=== PATIENT | male | born 1945 | race Two or more races ===

== ENCOUNTER 2018-01-18 11:04 | Outpatient (CLI) | payer OTHER | END 2018-01-18 11:13 | disposition home or self-care (01) | LOC: SONOGRAMA 11:04 | DX: M75.51 Bursitis of right shoulder (principal) ==

== ENCOUNTER 2018-03-07 10:08 | Outpatient (CLI) | payer OTHER | END 2018-03-07 10:15 | disposition home or self-care (01) | LOC: LAB 10:08 | DX: C61 Malignant neoplasm of prostate (principal); R31.29 Other microscopic hematuria ==

== ENCOUNTER 2018-05-23 06:55 | Outpatient (CLI) | payer OTHER | END 2018-05-23 07:28 | disposition home or self-care (01) | LOC: LAB 06:55 | DX: Z85.46 Personal history of malignant neoplasm of prostate (principal); Z13.220 Encounter for screening for lipoid disorders; Z13.29 Encounter for screening for other suspected endocrine disorder; Z13.1 Encounter for screening for diabetes mellitus ==

== ENCOUNTER → 2018-09-18 07:04 | Outpatient (CLI) | payer OTHER | END | disposition home or self-care (01) | LOC: LAB 07:04 | DX: N30.00 Acute cystitis without hematuria (principal); C61 Malignant neoplasm of prostate ==

== ENCOUNTER 2019-02-20 07:47 | Outpatient (CLI) | payer OTHER | END 2019-02-20 12:04 | disposition home or self-care (01) | LOC: LAB 07:47 | DX: I10 Essential (primary) hypertension (principal); Z90.49 Acquired absence of other specified parts of digestive tract ==

== ENCOUNTER 2019-05-20 06:48 | Outpatient (CLI) | payer OTHER | END 2019-05-20 06:59 | disposition home or self-care (01) | LOC: LAB 06:48 | DX: R97.20 Elevated prostate specific antigen [PSA] (principal); C61 Malignant neoplasm of prostate ==

== ENCOUNTER 2019-08-15 06:56 | Outpatient (CLI) | payer OTHER | END 2019-08-15 07:06 | disposition home or self-care (01) | LOC: LAB 06:56 | DX: E55.9 Vitamin D deficiency, unspecified (principal); E78.00 Pure hypercholesterolemia, unspecified; I10 Essential (primary) hypertension; Z12.5 Encounter for screening for malignant neoplasm of prostate; E11.9 Type 2 diabetes mellitus without complications ==

== ENCOUNTER 2019-09-29 06:52 | Outpatient (CLI) | payer OTHER | END 2019-09-29 06:57 | disposition home or self-care (01) | LOC: LAB 06:52 | DX: R97.20 Elevated prostate specific antigen [PSA] (principal); C61 Malignant neoplasm of prostate ==

== ENCOUNTER 2019-10-01 11:39 | Outpatient (CLI) | payer OTHER | END 2019-10-01 12:48 | disposition home or self-care (01) | LOC: LAB 11:39 | DX: R97.20 Elevated prostate specific antigen [PSA] (principal); C61 Malignant neoplasm of prostate ==

== ENCOUNTER → 2019-10-13 | Outpatient (CLI) | payer OTHER | END | disposition home or self-care (01) | LOC: TOM 08:15 | DX: R97.20 Elevated prostate specific antigen [PSA] (principal); C61 Malignant neoplasm of prostate; R10.84 Generalized abdominal pain | CPT/HCPCS: 74178; Q9965 ==

== ENCOUNTER 2019-10-15 07:48 | Outpatient (CLI) | payer OTHER | END 2019-10-15 08:14 | disposition home or self-care (01) | LOC: NUCLEAR 07:48 | DX: C61 Malignant neoplasm of prostate (principal); R97.20 Elevated prostate specific antigen [PSA] | CPT/HCPCS: 78320; A9503 ==

== ENCOUNTER 2019-10-17 07:00 | Outpatient (CLI) | payer OTHER | END 2019-10-17 07:07 | disposition home or self-care (01) | LOC: LAB 07:00 | DX: R97.20 Elevated prostate specific antigen [PSA] (principal); C61 Malignant neoplasm of prostate ==

== ENCOUNTER 2020-05-04 06:26 | Outpatient (CLI) | payer OTHER | END 2020-05-04 06:30 | disposition home or self-care (01) | LOC: LAB 06:26 | DX: I72.8 Aneurysm of other specified arteries (principal) ==

== ENCOUNTER 2020-05-10 07:53 | Outpatient (CLI) | payer OTHER | END 2020-05-10 07:57 | disposition home or self-care (01) | LOC: TOM 07:53 | DX: I72.8 Aneurysm of other specified arteries (principal) | CPT/HCPCS: 74177; Q9965 ==

== ENCOUNTER → 2020-11-16 07:37 | Outpatient (CLI) | payer OTHER | END | disposition home or self-care (01) | LOC: LAB 07:37 | PROVIDERS: ATTEND Internal Medicine | DX: D50.8 Other iron deficiency anemias (principal); C61 Malignant neoplasm of prostate; R97.21 Rising PSA following treatment for malignant neoplasm of prostate; N39.0 Urinary tract infection, site not specified; N40.0 Benign prostatic hyperplasia without lower urinary tract symptoms; R19.5 Other fecal abnormalities; I10 Essential (primary) hypertension; E78.2 Mixed hyperlipidemia; E11.9 Type 2 diabetes mellitus without complications; Z87.442 Personal history of urinary calculi; N39.3 Stress incontinence (female) (male) ==

== ENCOUNTER 2021-02-17 06:27 | Day surgery (SDC) | payer OTHER ==
[~2021-02-17 06:27] MED LIST: DITROPAN XL10 MG PO; NORVASC5 MG PO; PANTOPRAZOLE SO40 M2 PO; SIMVASTATIN20 MG PO; VITAMIN D-40010 MCG PO
[2021-02-17] MEDS ORDERED: MIRALAX17 GM PO (11:09)
[2021-02-17] MEDS ORDERED: ULTRAM50 MG PO (11:09)
[2021-02-17] MEDS ORDERED: TYLENOL ARTHRI650 MG PO (11:09)
== END 2021-02-17 13:35 | disposition home or self-care (01) ==
LOC: CIR.AMB 06:27
PROVIDERS: ATTEND Surgery
DX: K40.90 Unilateral inguinal hernia, without obstruction or gangrene, not specified as recurrent (principal); Z20.822 Contact with and (suspected) exposure to COVID-19

== ENCOUNTER 2021-06-06 06:51 | Outpatient (CLI) | payer OTHER ==
[~2021-06-06 06:51] MED LIST changes: +MIRALAX17 GM PO; +TYLENOL ARTHRI650 MG PO; +ULTRAM50 MG PO
== END 2021-06-06 06:53 | disposition home or self-care (01) ==
LOC: LAB 06:51
PROVIDERS: ATTEND Internal Medicine
DX: D50.8 Other iron deficiency anemias (principal); N39.0 Urinary tract infection, site not specified; E11.9 Type 2 diabetes mellitus without complications; I10 Essential (primary) hypertension; C61 Malignant neoplasm of prostate; R97.0 Elevated carcinoembryonic antigen [CEA]; E29.1 Testicular hypofunction

== ENCOUNTER 2021-12-15 06:53 | Outpatient (CLI) | payer OTHER | END 2021-12-15 07:08 | disposition home or self-care (01) | LOC: LAB 06:53 → CIR.AMB 06:53 → LAB 07:08 | PROVIDERS: ATTEND Internal Medicine | DX: I10 Essential (primary) hypertension (principal); N39.0 Urinary tract infection, site not specified; N40.0 Benign prostatic hyperplasia without lower urinary tract symptoms; R19.5 Other fecal abnormalities; E78.2 Mixed hyperlipidemia; D50.9 Iron deficiency anemia, unspecified; E11.9 Type 2 diabetes mellitus without complications; E03.1 Congenital hypothyroidism without goiter; M25.50 Pain in unspecified joint; Z12.11 Encounter for screening for malignant neoplasm of colon; Z87.442 Personal history of urinary calculi ==

== ENCOUNTER 2022-06-20 06:42 | Outpatient (CLI) | payer OTHER | END 2022-06-20 06:43 | disposition home or self-care (01) | LOC: LAB 06:42 | PROVIDERS: ATTEND Internal Medicine | DX: N39.0 Urinary tract infection, site not specified (principal); E11.9 Type 2 diabetes mellitus without complications; I10 Essential (primary) hypertension; D50.9 Iron deficiency anemia, unspecified ==

== ENCOUNTER 2023-03-21 06:53 | Outpatient (CLI) | payer OTHER | END 2023-03-21 06:54 | disposition home or self-care (01) | LOC: LAB 06:53 | PROVIDERS: ATTEND Internal Medicine | DX: N18.9 Chronic kidney disease, unspecified (principal); N39.0 Urinary tract infection, site not specified; Z87.442 Personal history of urinary calculi; M25.50 Pain in unspecified joint; R19.5 Other fecal abnormalities; D50.9 Iron deficiency anemia, unspecified; E11.9 Type 2 diabetes mellitus without complications; E03.1 Congenital hypothyroidism without goiter; N40.0 Benign prostatic hyperplasia without lower urinary tract symptoms ==

== ENCOUNTER 2023-12-19 06:59 | Outpatient (CLI) | payer OTHER ==
[2023-12-19 08:01] LABS: HEMATOCRIT 36.5 % (39.0-48.0); HEMOGLOBIN 12.5 g/dL (13-16.00); MEAN CELL VOLUME 90.9 fL (80.0-100.00); MEAN CORPUSCULAR HEMOGLOBIN 31.2 pg (27.00-32.0); MEAN CORPUSCULAR HGB CONC 34.3 g/dl (32.0-36.0); PLATELET COUNT 168 K/uL (150-450); RED BLOOD COUNT 4.02 M/uL (4.00-6.00)
[2023-12-19 08:20] LABS: ERYTHROCYTE SEDIMENTATION RATE 9 mm/hr
[2023-12-19 08:39] LABS: PH,URINE 7.5 (5.0-8.0); URINE APPEARANCE Cloudy; URINE BILIRRUBIN Negative (NEGATIVE); URINE BLOOD Negative; URINE COLOR Yellow; URINE GLUCOSE Negative (NEGATIVE); URINE LEUKOCYTE Negative; URINE NITRATE Negative; URINE PROTEIN Negative (NEGATIVE); URINE UROBILINOGEN 0.2 E.U./dl
[2023-12-19 08:46] LABS: ALBUMIN 4.3 gm/dL (3.4-5.0); ALKALINE PHOSPHATASE 56 U/L (50-136); ALT/SGPT 18 U/L (12-78); ANION GAP 8 (10.0-20.0); AST/SGOT 16 U/L (15-37); BILIRUBIN TOTAL 0.99 mg/dL (0.3-1.2); BLOOD UREA NITROGEN 11 mg/dL (7-18); BUN CREA RATIO 12 (7.0-25.0); CARBON DIOXIDE 33 mEq/L (21-32); CHLORIDE 104 mmol/L (98-107); CHOL HDL RATIO 0.9 (0-5.0); CHOLESTEROL 72 mg/dL (0-200); CREATININE SERUM 0.89 mg/dL (0.70-1.30); GFR 82.67; GLOBULINA 3.3 G/DL (2.4-3.5); GLUCOSE FASTING 116 mg/dL (65-100); HDL 77 mg/dl (40-60); OSMOLALITY SERUM 282 MOSM/KG (275-295); POTASSIUM 3.93 mEq/L (3.5-5.1); PROSTATIC SPECIFIC ANTIGEN 0.169 NG/ML (0.010-4.00); SODIUM 141 mmol/L (136-145); T3 UPTAKE 35 % (33-40); T4 TOTAL 7.46 UG/DL (4.5-12.1); TOTAL PROTEIN 7.6 gm/dL (6.4-8.2); TRIGLYCERIDES 46 mg/dL (0-150); VLDL 9 (0-39)
[2023-12-19 08:47] LABS: URINE BACTERIA 3.7 uL (0.0-1933)
[2023-12-19 09:06] LABS: URIC ACID 6.5 mg/dL (3.5-8.5)
[2023-12-19 12:27] LABS: ob NEGATIVE (NEGATIVE)
== END 2023-12-19 12:07 | disposition home or self-care (01) ==
LOC: LAB 06:59
PROVIDERS: ATTEND Internal Medicine
DX: I10 Essential (primary) hypertension (principal); M25.50 Pain in unspecified joint; R19.5 Other fecal abnormalities; Z12.11 Encounter for screening for malignant neoplasm of colon; Z87.442 Personal history of urinary calculi; D50.9 Iron deficiency anemia, unspecified; E78.2 Mixed hyperlipidemia; E11.9 Type 2 diabetes mellitus without complications; E03.1 Congenital hypothyroidism without goiter; N40.0 Benign prostatic hyperplasia without lower urinary tract symptoms; N39.0 Urinary tract infection, site not specified; N18.9 Chronic kidney disease, unspecified

== ENCOUNTER 2024-06-17 07:04 | Outpatient (CLI) | payer OTHER ==
[2024-06-17 07:23] LABS: URINE APPEARANCE Clear; URINE BILIRRUBIN Negative (NEGATIVE); URINE BLOOD Negative; URINE GLUCOSE Negative (NEGATIVE); URINE KETONE Trace (NEGATIVE); URINE LEUKOCYTE Trace; URINE NITRATE Negative; URINE PROTEIN Trace (NEGATIVE); URINE UROBILINOGEN 0.2 E.U./dl
[2024-06-17 07:27] LABS: HEMATOCRIT 36.1 % (39.0-48.0); HEMOGLOBIN 12.5 g/dL (13-16.00); MEAN CELL VOLUME 92.5 fL (80.0-100.00); MEAN CORPUSCULAR HGB CONC 34.6 g/dl (32.0-36.0); PLATELET COUNT 170 K/uL (150-450); RED CELL DISTRIBUTION WIDTH 12.4 % (11.5-14.5); URINE BACTERIA 8.8 uL (0.0-1933); URINE EPITHELIAL CELLS 2.7 uL (0.0-38.8); URINE RBC 11.9 uL (0.0-20.8); URINE WBC 1.8 uL (0.0-23.2)
[2024-06-17 07:36] LABS: URINE COLOR Dark Yellow
[2024-06-17 08:01] LABS: BILIRUBIN TOTAL 0.92 mg/dL (0.3-1.2); CALCIUM 9.8 mg/dL (8.5-10.1); CHOL HDL RATIO 2.4 (0-5.0); CREATININE SERUM 0.91 mg/dL (0.70-1.30); GFR 80.37; GLOBULINA 3.5 G/DL (2.4-3.5); POTASSIUM 3.54 mEq/L (3.5-5.1); TOTAL PROTEIN 7.5 gm/dL (6.4-8.2)
== END 2024-06-17 07:05 | disposition home or self-care (01) ==
LOC: LAB 07:04
PROVIDERS: ATTEND Internal Medicine
DX: N39.0 Urinary tract infection, site not specified (principal); I10 Essential (primary) hypertension; D50.9 Iron deficiency anemia, unspecified

== ENCOUNTER → 2024-12-17 07:07 | Outpatient (CLI) | payer OTHER ==
[2024-12-17 07:51] LABS: HEMOGLOBIN 13.1 g/dL (13-16.00); MEAN CELL VOLUME 93.2 fL (80.0-100.00); MEAN CORPUSCULAR HEMOGLOBIN 31.3 pg (27.00-32.0); MEAN CORPUSCULAR HGB CONC 33.6 g/dl (32.0-36.0); PLATELET COUNT 178 K/uL (150-450); RED BLOOD COUNT 4.18 M/uL (4.00-6.00); RED CELL DISTRIBUTION WIDTH 12.4 % (11.5-14.5)
[2024-12-17 08:17] LABS: ob POSITIVE (NEGATIVE)
[2024-12-17 08:20] LABS: ERYTHROCYTE SEDIMENTATION RATE 11 mm/hr
[2024-12-17 08:23] LABS: PH,URINE 7.5 (5.0-8.0); URINE APPEARANCE Clear; URINE BILIRRUBIN Negative (NEGATIVE); URINE BLOOD Negative; URINE COLOR Yellow; URINE GLUCOSE Negative (NEGATIVE); URINE KETONE Negative (NEGATIVE); URINE LEUKOCYTE Negative; URINE NITRATE Negative; URINE PROTEIN Negative (NEGATIVE); URINE UROBILINOGEN 0.2 E.U./dl
[2024-12-17 08:25] LABS: URINE BACTERIA 8.5 uL (0.0-1933); URINE EPITHELIAL CELLS 1.5 uL (0.0-38.8); URINE RBC 12.3 uL (0.0-20.8)
[2024-12-17 08:36] LABS: URINE WBC 1.7 uL (0.0-23.2)
[2024-12-17 08:36] LABS: ALBUMIN 4.3 gm/dL (3.4-5.0); BILIRUBIN TOTAL 1.19 mg/dL (0.3-1.2); CALCIUM 10.2 mg/dL (8.5-10.1); CHOL HDL RATIO 2.4 (0-5.0); GFR 72.08; GLOBULINA 3.5 G/DL (2.4-3.5); POTASSIUM 4.09 mEq/L (3.5-5.1); PROSTATIC SPECIFIC ANTIGEN 0.275 NG/ML (0.010-4.00); TOTAL PROTEIN 7.8 gm/dL (6.4-8.2); TSH 1.01 uIU/mL (0.358-3.74)
[2024-12-17 08:39] LABS: URIC ACID 6.9 mg/dL (3.5-8.5)
== END | disposition home or self-care (01) ==
LOC: LAB 07:07
PROVIDERS: ATTEND Internal Medicine
DX: M25.50 Pain in unspecified joint (principal); I10 Essential (primary) hypertension; R19.5 Other fecal abnormalities; Z87.442 Personal history of urinary calculi; D50.9 Iron deficiency anemia, unspecified; E78.2 Mixed hyperlipidemia; E11.9 Type 2 diabetes mellitus without complications; E03.1 Congenital hypothyroidism without goiter; N40.0 Benign prostatic hyperplasia without lower urinary tract symptoms; N39.0 Urinary tract infection, site not specified; N18.9 Chronic kidney disease, unspecified; E11.69 Type 2 diabetes mellitus with other specified complication

== ENCOUNTER → 2025-06-17 07:15 | Outpatient (CLI) | payer OTHER ==
[2025-06-17 08:08] LABS: BASO % 0.6 % (0.1-1.2); EOS # 0.07 (0.04-0.54); EOS % 1.3 % (0.7-7.0); LYMPH # 1.71 (1.18-3.74); LYMPH % 31.9 % (19.3-53.1); MEAN PLATELET VOLUME 10.40 fl (9.4-12.4); MONO # 0.50 (0.24-0.82); MONO % 9.3 % (4.7-12.5); NEUT # 3.03 (1.56-6.13); NEUT % 56.5 % (34.0-71.1); RED CELL DISTRIBUTION WIDTH 11.9 % (11.6-14.4)
[2025-06-17 08:40] LABS: URINE APPEARANCE Clear; URINE BILIRRUBIN Negative (NEGATIVE); URINE BLOOD Small; URINE COLOR Yellow; URINE GLUCOSE Negative (NEGATIVE); URINE KETONE Trace (NEGATIVE); URINE LEUKOCYTE Negative; URINE NITRATE Negative; URINE PROTEIN Negative (NEGATIVE); URINE UROBILINOGEN 0.2 E.U./dl
[2025-06-17 08:44] LABS: URINE BACTERIA 9.5 uL (0.0-1933); URINE RBC 151.7 uL (0.0-20.8)
[2025-06-17 09:18] LABS: ALT/SGPT 26.0 U/L (12-78); AST/SGOT 16.0 U/L (15-37); BILIRUBIN TOTAL 1.53 mg/dL (0.3-1.2); BUN CREA RATIO 14.0 (7.0-25.0); CHOL HDL RATIO 2.2 (0-5.0); CREATININE SERUM 1.02 mg/dL (0.70-1.30); GFR 70.27; GLOBULINA 3.4 G/DL (2.4-3.5); GLUCOSE FASTING 102.0 mg/dL (65-100); HDL 69.0 mg/dl (40-60); LDL 70.0 mg/dl (0-130); OSMOLALITY SERUM 282.0 MOSM/KG (275-295); TSH 0.79 uIU/mL (0.358-3.74); VLDL 14.0 (0-39)
[2025-06-17 09:25] LABS: URINE CAST 0.14 uL (0.0-1.40); URINE EPITHELIAL CELLS 1.0 uL (0.0-38.8); URINE WBC 1.6 uL (0.0-23.2)
== END | disposition home or self-care (01) ==
LOC: LAB 07:15
PROVIDERS: ATTEND Internal Medicine
DX: I10 Essential (primary) hypertension (principal); D50.9 Iron deficiency anemia, unspecified; E78.2 Mixed hyperlipidemia; E11.9 Type 2 diabetes mellitus without complications; E03.1 Congenital hypothyroidism without goiter; N39.0 Urinary tract infection, site not specified